=== PATIENT | male | born 1940 | race Caucasian/White ===

== ENCOUNTER 2016-10-20 12:59 | Inpatient (IN) | payer MEDICARE ==
[~2016-10-20] VITALS: Ht 188 cm; Wt 67.9 kg
[2016-10-20 17:50] VITALS: BP 147/71; PULSE 67; TEMP 98.5
[2016-10-21 05:00] VITALS: BP 152/77; PULSE 86; TEMP 98.2
[2016-10-21] MEDS ORDERED: ASPIRIN 81M81 MG/TA2 PO (07:42)
[2016-10-21] MEDS ORDERED: CIPRO 250MG TA250 MG PO (07:43)
[2016-10-21] MEDS ORDERED: PLAVIX 75MG TAB75 MG PO (07:43)
[2016-10-21] MEDS ORDERED: LOPRESSOR 225 MG/TAB PO ×2 (07:45→07:46)
[2016-10-21] MEDS ORDERED: ALMACONE 360 M360 ML PO (07:48)
[2016-10-21] MEDS ORDERED: ZOFRAN MDV2 MG/1 ML IV (07:50)
[2016-10-21 17:40] VITALS: BP 162/74; PULSE 55; TEMP 97.9
[2016-10-22 04:31] VITALS: BP 146/78; PULSE 50; TEMP 98.3
[2016-10-22 18:00] VITALS: BP 110/70; PULSE 88; TEMP 97.9
[2016-10-23 05:18] VITALS: BP 164/52; PULSE 53; TEMP 98.3
[2016-10-23 15:30] VITALS: BP 125/66; PULSE 62; TEMP 97.7
[2016-10-24 03:54] VITALS: BP 161/67; PULSE 55; TEMP 98.6
[2016-10-24 17:55] VITALS: BP 141/79; PULSE 62; TEMP 98.2
[2016-10-25 05:00] VITALS: BP 162/79; PULSE 49; TEMP 98.9
[2016-10-25 16:41] VITALS: BP 152/73; PULSE 51; TEMP 98.9
[2016-10-26 05:20] VITALS: BP 153/90; PULSE 51; TEMP 98.6
[2016-10-26 17:46] VITALS: BP 143/77; PULSE 60; TEMP 98.3
[2016-10-27 04:55] VITALS: BP 150/76; PULSE 49; TEMP 98.4
[2016-10-27 15:56] VITALS: BP 125/76; PULSE 57; TEMP 98.1
[2016-10-28 05:27] VITALS: BP 123/67; PULSE 62; TEMP 99.4
[2016-10-28 18:25] VITALS: BP 123/66; PULSE 73; TEMP 97.4
[2016-10-29 05:41] VITALS: BP 129/69; PULSE 63; TEMP 98.3
[2016-10-29 15:07] VITALS: BP 103/53; PULSE 57; TEMP 97.3
[2016-10-30 06:18] VITALS: BP 126/60; PULSE 53; TEMP 98.6
[2016-10-30 17:41] VITALS: BP 114/65; PULSE 72; TEMP 97.5
[2016-10-31 04:44] VITALS: BP 147/81; PULSE 53; TEMP 98.8
[2016-10-31 05:00] VITALS: BP 147/81; PULSE 53; TEMP 98.8
[2016-10-31 17:59] VITALS: BP 127/78; PULSE 64; TEMP 97.4
[2016-11-01 05:07] VITALS: BP 118/64; PULSE 54; TEMP 98.4
[2016-11-01 16:23] VITALS: BP 105/61; PULSE 58; TEMP 98
[2016-11-02 03:37] VITALS: BP 147/80; PULSE 55; TEMP 97.8
[2016-11-02 23:06] VITALS: BP 150/84; PULSE 50; TEMP 98.5
[2016-11-03 05:44] VITALS: BP 146/76; PULSE 52; TEMP 97.1
[2016-11-03 17:00] VITALS: BP 146/77; PULSE 54; TEMP 97.5
[2016-11-04 04:31] VITALS: BP 136/69; PULSE 54; TEMP 97.5
[2016-11-04 11:36] VITALS: BP 136/69; PULSE 54; TEMP 97.5
[2016-11-04] MEDS ORDERED: LIPITOR 10MG10 MG PO (13:10)
[2016-11-04] MEDS ORDERED: Flonase Nasal NS (13:23)
[2016-11-04 14:07] VITALS: BP 136/69; PULSE 54; TEMP 97.5
[2016-11-04 14:12] VITALS: BP 136/69; PULSE 54; TEMP 97.5
== END 2016-11-04 13:50 | DRG 56 ==
DX: I69.351 Hemiplegia and hemiparesis following cerebral infarction affecting right dominant side (principal); E43 Unspecified severe protein-calorie malnutrition; Z68.1 Body mass index [BMI] 19.9 or less, adult; I69.322 Dysarthria following cerebral infarction; I69.328 Other speech and language deficits following cerebral infarction; I69.321 Dysphasia following cerebral infarction; I10 Essential (primary) hypertension; I69.391 Dysphagia following cerebral infarction; R13.10 Dysphagia, unspecified; I25.10 Atherosclerotic heart disease of native coronary artery without angina pectoris; F17.210 Nicotine dependence, cigarettes, uncomplicated
CPT/HCPCS: 99222-AI; 99232-AI; 99239; J1650